=== PATIENT | male | born 1965 | race Caucasian/White ===

== ENCOUNTER 2018-09-16 18:11 | Inpatient (IN) | payer OTHER ==
[~2018-09-16] VITALS: Ht 177.8 cm; Wt 61.2 kg
--- NOTE | ~2018-09-16 | H ---
[facility] [place] [address] HISTORY AND PHYSICAL Name: KADEN NEGRON Room #: 359-P ADM IN ..#: [id number] Admission: 09/16/18 Attend Phys: Nellie Lobo Discharge: Date of : 69 Report #: [id number] THIS REPORT FOR: //name// CC: Fred Rosas DATE OF SERVICE: 09/16/2018 CHIEF COMPLAINT: Hypoxia. HISTORY OF PRESENT ILLNESS: The patient is a 53-year-old gentleman, quadriplegic, trach dependent, who is sent to the hospital from his assisted with hypoxia. He lives at [facility] and normally has a trach shield with 28% oxygen. However, yesterday, the staff noted he was desaturating and was requiring 100% FiO2. They felt that he appeared pale, diaphoretic, warm to touch and is sent to the Emergency Room. Upon arrival there, his sats were 97%, but did have a temperature of 101. PAST MEDICAL HISTORY: Quadriplegia, colostomy, atrial fibrillation, trach dependent and PEG tube. 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 He has contractures of the upper extremities. PAST SURGICAL HISTORY: Unknown. FAMILY HISTORY: Unknown. SOCIAL HISTORY: Unknown. ALLERGIES: HYDROCODONE. MEDICATIONS: Iron, Paxil, MiraLax, scopolamine, Pepcid, lactulose, Senokot, midodrine, baclofen, oxycodone, Ativan, fentanyl patch and Tylenol. REVIEW OF SYSTEMS: He is unable to provide a review. PHYSICAL EXAMINATION: VITAL SIGNS: Temperature 36.9, pulse 56, respirations 16, blood pressure 93/53 and O2 sat 99% on 35% trach shield. GENERAL: He is awake. He tries to speak over the trach. HEAD AND NECK: Shows a trach in place, no bleeding. LUNGS: Clear anteriorly. HEART: Regular. No murmur. ABDOMEN: Soft. Normoactive bowel sounds. PEG tube in place. Left-sided colostomy. EXTREMITIES: Nonpitting edema of the lower legs. He has flexion contractures at the shoulders, elbows and wrists, bilateral. NEUROLOGIC: Appears immobile from about the neck or upper chest down. [address] [address] HISTORY AND PHYSICAL Name: KADEN NEGRON Room #: 359-P ADM IN ..#: [id number] Admission: 09/16/18 Attend Phys: Nellie Lobo Discharge: Date of : 69 Report #: [id number] LABORATORY AND X-RAY DATA: Reviewed. Pertinent findings on x-ray with bilateral opacifications, consideration of pneumonia or atelectasis. ASSESSMENT: 1. Healthcare-associated pneumonia. 2. Febrile illness. 3. Multiple stage 4 wounds. 4. Chronic quadriplegia. 5. Tracheostomy dependence. 6. Hypoxia due to healthcare-associated pneumonia. 7. Microcytic anemia. 8. Hyponatremia. 9. Severe protein-calorie malnutrition, albumin 2. PLAN: He will be treated initially for pneumonia; however, consideration should be given of infected wounds causing his elevated white count and fever. Due to his spinal cord injury, he may be hypoventilating with contributing to atelectasis on x-ray and relative hypoxia. I will ask the Pulmonary Service to see him and ID along with wound care. Overall, prognosis is poor. <ELECTRONICALLY SIGNED> By: Sanchez Sorto MD 09/17/18 1217 1020 1204 Sanchez Sorto MD /nt
--- NOTE | ~2018-09-16 | O ---
[facility] [place] [address] OPERATIVE REPORT Name: KADEN NEGRON Room #: 245-P [facility] IN M.R.#: [id number] Admission: 09/16/18 Attend Phys: Nellie Lobo Discharge: Date of : 69 Report #: [id number] THIS REPORT FOR: //name// CC: Dom Rosas DATE OF SERVICE: 09/20/2018 SURGEON: Pako Carrizales MD. TORCH STRAIGHTENER AND HEATER: None. PREOPERATIVE DIAGNOSES: 1. Extensive unstageable gluteal, and ischial decubitus ulcers 2. Malnutrition. 3. Paraplegia/quadriplegia. 4. Atrial fibrillation. POSTOPERATIVE DIAGNOSES: 1. Extensive stage 4 sacral, gluteal, and ischial decubitus ulcers. 2. Malnutrition. 3. Paraplegia/quadriplegia. 4. Atrial fibrillation. PROCEDURE: 1. An ultrasonic debridement of stage 4 sacral, gluteal and ischial decubitus ulcers including skin, subcutaneous tissue, muscle, and bone with starting measurements (in cm, width x height) of 7.5 x 7 cm sacrum, 8 x 7 cm left ischial, 15 x 10 cm right ischial; ending measurements of 15 x 11 cm sacrum, 10 x 8 cm left ischial, and 20 x 15 cm right ischial with a total area of 545 cm2. 2. Application of human connective tissue matrix (Interfyl). ANESTHESIA: General endotracheal anesthesia and local anesthetic. ESTIMATED BLOOD LOSS: 250 mL. SPECIMEN: Sacral skin, subcutaneous tissue, muscle, and bone, left ischial bone, right ischial bone. COMPLICATIONS: None appreciated. INDICATIONS FOR PROCEDURE: This is a 53-year-old male patient with quadriplegia who was transferred to [facility] for hypoxia with 28% oxygenation. He has extensive unstageable sacral, gluteal and ischial decubitus ulcers and presents now for excisional and ultrasonic debridement. [facility] [address] [place] [address] OPERATIVE REPORT Name: KADEN NEGRON Faraz Room #: 245-P [facility] IN [facility].#: [id number] Admission: 09/16/18 Attend Phys: Nellie Lobo Discharge: Date of : 69 Report #: [id number] DESCRIPTION OF PROCEDURE IN DETAIL: After the risks, benefits and expectations of the operation were discussed in detail with the patient and his durable power of respiratory services manager, informed consent was obtained. The patient was identified in the preoperative holding area. He has been receiving scheduled IV antibiotics. The patient was then taken to the operating room and he was placed in the supine position. SCDs were placed on the patient's bilateral lower extremities and pneumatic compression was initiated. The patient was then given general anesthesia through his indwelling tracheostomy. He was placed in the prone position on the operating room table. His sacral and gluteal areas were prepped and draped in the standard sterile fashion. A time-out was performed to identify the correct patient and procedure. Local anesthetic was infiltrated into the skin and subcutaneous tissue in the areas of incision that were determined by digital palpation. A sharp #10 blade scalpel was then used to make the incision around each of the wounds. Electrocautery was then used to dissect through the subcutaneous tissue down to healthy bleeding tissue, which included the entire surface area of the wound. Bleeding points were made hemostatic with electrocautery. Cultures were taken from the more superficial tissue of the sacrum. The sacral bone was also quite prominent and soft. This was felt to represent osteomyelitis/a stage 4 wound. A rongeur was used to remove the outer table of bone and underlying marrow. Bleeding points were made hemostatic with electrocautery. Cultures were taken to be sent for aerobes, anaerobes and fungus from the marrow. Bleeding points were made hemostatic with electrocautery. A rasp was used to file down the bone and eliminate any jagged edges. The wound was then made hemostatic with electrocautery. The Misonix ultrasonic debridement device was then used to further mechanically debride the wound with cavitation of both nonviable cells and bacteria. Bleeding points were again made hemostatic with electrocautery. The left ischial wound was debrided in a similar fashion. Local anesthetic had been infiltrated into the skin and subcutaneous tissue. Sharp #10 blade scalpel was used to make the incision. Electrocautery was used to dissect through the subcutaneous tissue down to healthy bleeding tissue of the wound including the entire wound surface area. A curette was then used to mechanically debride the wound and after hemostasis was achieved with electrocautery, the Misonix device was used on the entire wound surface area. Finally, the right ischial wound was both excisionally and mechanically debrided in a similar fashion. Local anesthetic had been infiltrated into the skin and subcutaneous tissue. A sharp #10 blade scalpel was used to make the incision. Electrocautery was used to dissect through the tissue down to healthy bleeding tissue and to include the tissue overlying the bone. The wound was then curetted and electrocauterized. The wound was then irrigated and the Misonix device was used to mechanically and ultrasonically debride the entire wound surface area. The bony prominence present in the left ischium and right ischium had been removed with rongeur and smoothed out with a rasp. The Misonix device [address] [address] OPERATIVE REPORT Name: KADEN NEGRON Room #: 245-P [facility] IN ..#: [id number] Admission: 09/16/18 Attend Phys: Nellie Lobo Discharge: Date of : 69 Report #: [id number] was used on each of the exposed bone areas. A total of 5 mL of Interfyl was then applied to the bony aspect each of the wounds. The human connective tissue matrix was applied in a thin layer using the backend of a pickup to evenly distribute the matrix. Each wound was then dressed with Adaptic and saline moistened 4 x 4s, then an ABD pad and tape. The patient tolerated the procedure well. He was returned to supine position, awakened, extubated, and taken to recovery room in stable condition with no apparent intraoperative complications. By: 1254 1759 Pako Carrizales MD, FACS /nt
--- NOTE | ~2018-09-16 | HC ---
[facility] [place] [address] CONSULTATION Name: KADEN NEGRON Room #: 359-P [facility] IN ..#: [id number] Admission: 09/16/18 Attend Phys: Nellie Lobo Discharge: Date of : 69 Report #: [id number] THIS REPORT FOR: //name// CC: Fred Rosas DATE OF SERVICE: 09/17/2018 TYPE OF REPORT: Pulmonary consultation. REFERRAL PHYSICIAN: Dom Rosas M.D. REASON FOR REFERRAL: Pneumonia, respiratory failure. HISTORY OF PRESENT ILLNESS: The patient is a 53-year-old white male who is being admitted with progressive hypoxia. A Pulmonary consultation was requested. The patient is quadriplegic. Detail of this is unclear. He is trach dependent. He has been residing in a custodial. The patient had a prior history of pneumonia. He was in his usual state of health until recently and was found to be hypoxic. Chest x-ray performed showing infiltrates. He was febrile. He was admitted to the hospital. The patient opens his eyes but does not verbalize. He has a trach in place. PAST MEDICAL HISTORY: As mentioned above: Quadriplegia, details unknown; trach dependent, status post PEG tube placement; multiple pressure wounds including decubitus ulcer involving the sacrum; contractures of both his upper extremities and generalized debility. PAST SURGICAL HISTORY: As mentioned above. ALLERGIES: HYDROCODONE, reactions not specified. MEDICATIONS: From the facility are reviewed, in the MAR. FAMILY HISTORY: Unknown. SOCIAL HISTORY: Unknown. REVIEW OF SYSTEMS: Deferred as the patient is not able to provide adequate history. PHYSICAL EXAMINATION: [facility] [address] [place] [address] CONSULTATION Name: KADEN NEGRON Room #: 359-P ADM IN [facility].#: [id number] Admission: 09/16/18 Attend Phys: Nellie Lobo Discharge: Date of : 69 Report #: [id number] GENERAL: He has eyes open. He is awake and does not appear to be in any distress. VITAL SIGNS: Temperature maximum was 101.3 degrees Fahrenheit, pulse is 80, respiratory rate is 18, blood pressure 100/63 mmHg and saturation 100%. HEENT: Normocephalic and atraumatic. NECK: Status post tracheostomy. CHEST: Breath sounds are mildly coarse bilaterally. CARDIOVASCULAR: Normal S1 and S2. There are no murmurs or gallop. There are no JVDs and no carotid bruit. Pulses are 2+/4+ bilaterally. ABDOMEN: Soft and nontender. No organomegaly or masses felt plus there is a PEG tube placed in the mid upper abdomen area. GENITOURINARY: Deferred. RECTAL: Deferred. EXTREMITIES: No cyanosis, clubbing or edema. MUSCULOSKELETAL: Notable for upper extremity contractures, marked muscle atrophy diffusely throughout. RADIOLOGICAL DATA: Chest x-ray shows haziness in the left lung field. Right lung field is clear. Tracheostomy in the appropriate position. LABORATORY DATA: Influenza A and B swab is negative. UA shows no bacteria. Electrolytes: Sodium 127, potassium 4.6, chloride 92, CO2 is 31, BUN is 19 and creatinine 0.7. Liver enzymes are grossly unremarkable. WBC 18,000 and hemoglobin 7.8. There are no significant bandemia. Albumin 2.0. Arterial blood gas revealed pH 7.43, pCO2 of 40 and pO2 104 on 10 liters of O2. IMPRESSION: 1. Swdgo-yt-ohmsoph hypoxic respiratory failure in this 53-year-old white male, quadriplegic. Chest x-ray shows haziness in the left lung field. Pneumonia is felt to be the likely, likely aspiration. He lives in a custodial. 2. Pneumonia, need to cover for nosocomial infections as the patient resides in a custodial. 3. Quadriplegia, details unknown, trach dependent. He has marked muscle atrophy along with contractures involving the upper extremities. 4. Anemia, hypochromic, microcytic. 5. Severe protein-calorie malnutrition. RECOMMENDATIONS: We will defer antibiotics to infectious disease. Wean O2 for saturation 90%. If respiratory status deteriorates given his pneumonia, the patient may benefit from mechanical ventilation temporarily. DVT and GI prophylaxis recommended. A nutritional support will be addressed once [place] [address] CONSULTATION Name: KADEN NEGRON Faraz Room #: 359-P ADM IN M.R.#: [id number] Admission: 09/16/18 Attend Phys: Nellie Lobo Discharge: Date of : 69 Report #: [id number] Thank you for this consultation. <ELECTRONICALLY SIGNED> By: Hemal Walker MD 09/19/18 1955 1717 0211 Hemal Walker MD /nt
--- NOTE | ~2018-09-16 | PATH ---
[facility] [address] [place] [address] PATHOLOGY RPT PROCEDURE Name: KADEN NEGRON Room #: 354-[facility] IN [facility].#: [id number] Admission: 09/16/18 Date of : 69 Discharge: 09/24/18 Report #: [id number] Path Case #: [id number] Note [facility] Accession Number: [id number] TESTS RESULT FLAG UNITS REF RANGE LAB Clinician Provided Cytology Information No. of containers..01 Other (Miscellaneous) Source: PLEURAL DIAGNOSIS: 02 PLEURAL NEGATIVE FOR MALIGNANT CELLS. SCANT CELLULARITY. MESOTHELIAL CELLS ARE PRESENT. THIS INTERPRETATION INCLUDES EVALUATION OF A CELL BLOCK. Signed out by: 02 Brandt Ford MD, Pathologist NPI- [id number] Performed by: 01 Roni Encinas, Rd Lab Technician ([facility]) Gross description: 01 1ML, RED, CLOUDY /LCS FLAG LEGEND: L-Low Normal,H-High Normal,LL-Alert Low,HH-Alert High <-Panic Low,>-Panic High,A-Abnormal,AA-Critical Abnormal Performed at: [address] [place] [address] Doni Breaux MD, [address] [address] Neha Sewell MD, Performed at: [address], [place], [place] [id number] MD Doni Breaux MD Phone: [phone]
--- NOTE | ~2018-09-16 | PATH ---
[facility] [address] [place] [address] PATHOLOGY RPT PROCEDURE Name: ALBERT CASTILLO Room #: 354-P [facility] IN M.R.#: [id number] Admission: 09/16/18 Date of : 69 Discharge: 09/24/18 Report #: [id number] Path Case #: [id number] [facility] Accession Number: [id number] . 01 Material submitted: . PART A: SACRAL BONE PART B: SACRAL TISSUE PART C: LEFT ISCHIAL TISSUE PART D: LEFT ISCHIAL BONE PART E: RIGHT ISCHIAL BONE . 01 Clinical history: . Sacral wound . 02 Diagnosis: A. Bone and soft tissue "sacral bone": - Fragments of bone and soft tissue revealing acute and chronic osteomyelitis with bone necrosis. - The surrounding tissue reveals granulation tissue, edema, hemorrhage, and acute and chronic inflammation. . B. Skin with underlying soft tissue "sacral tissue": - Extensive ulceration with underlying acute and chronic inflammation and granulation tissue. . C. Skin with underlying soft tissue "left ischial tissue": - Ulceration with underlying acute and chronic inflammation and granulation tissue. . D. Bone and soft tissue "left ischial bone": - Acute and chronic osteomyelitis with granulation tissue. The surrounding soft tissue also reveals granulation tissue and acute and chronic inflammation. . E. Bone and soft tissue "right ischial bone": - Acute and chronic osteomyelitis with granulation tissue, remote hemorrhage with hemosiderin laden macrophages. The surrounding soft tissue reveals acute and chronic inflammation and granulation tissue. (SHA:artemio; 09/24/2018) QMS/09/24/2018 . 02 Electronically signed: . Brandt Ford MD, Pathologist NPI- [id number] . 01 Gross description: . A. The specimen is received in formalin, labeled "Albert Castillo, sacral [address] [address] PATHOLOGY RPT PROCEDURE Name: ALBERT CASTILLO Room #: 354-P [facility] IN M.R.#: [id number] Admission: 09/16/18 Date of : 69 Discharge: 09/24/18 Report #: [id number] Path Case #: [id number] bone". Received are multiple segments of light sampson bone admixed with pink-otoole fibromembranous tissue measuring 3.8 x 3.5 x 0.9 cm in aggregate dimensions. The specimen is submitted representatively in cassette A1, following decalcification. . B. The specimen is received in formalin, labeled "Albert Hill, sacral tissue". Received is a segment of pink-sampson to dusky otoole-brown, necrotic-appearing skin with attached underlying soft tissue measuring 13.8 x 4.9 x 1.5 cm in aggregate dimensions. The specimen is submitted representatively in cassette B1. . C. The specimen is received in formalin, labeled "Albert Hill, left ischial tissue". Received is a segment of pale sampson to otoole-sampson skin with attached soft tissue measuring 4.8 x 2.4 x 1.6 cm in greatest dimensions. The specimen is submitted representatively in cassette C1. . D. The specimen is received in formalin, labeled "Albert Hill, left ischial bone". Received are multiple segments of otoole-brown soft tissue admixed with bone measuring 3.0 x 2.5 x 0.6 cm in aggregate dimensions. The specimen is submitted entirely in cassette D1, following decalcification. . E. The specimen is received in formalin, labeled "Albert Hill, right ischial bone". Received are multiple segments of light sampson bone admixed with soft tissue measuring 3.0 x 2.5 x 0.7 cm in aggregate dimensions. The specimen is submitted entirely in cassette E1, following decalcification. (CAA; 09/23/2018) QAC/QAC . 02 Microscopic: . . . 02 Pathologist provided ICD-10: M46.28, L89.159, M79.9 . 02 CPT . 059225, 773055, 198832, 834738, 508777, 200308, 022585, 148946 Specimen Comment: A courtesy copy of this report has been sent to Specimen Comment: [phone], . Specimen Comment: Report sent to / GENE Specimen Comment: A duplicate report has been generated due to demographic updates. Performed at: [address], [place], [place] [id number] MD Doni Breaux MD Phone: [phone] Performed at: [address] [address] PATHOLOGY RPT PROCEDURE Name: ALBERT CASTILLO Room #: 354-P [facility] IN M.R.#: [id number] Admission: 09/16/18 Date of : 69 Discharge: 09/24/18 Report #: [id number] Path Case #: [id number] [address] [id number] MD Neha Sewell MD Phone: [phone]
--- NOTE | ~2018-09-16 | HC ---
[facility] [place] [address] CONSULTATION Name: KADEN NEGRON Room #: 359-P [facility] IN ..#: [id number] Admission: 09/16/18 Attend Phys: Nellie Lobo Discharge: Date of : 69 Report #: [id number] THIS REPORT FOR: //name// CC: Fred Rosas DATE OF SERVICE: 09/17/2018 INFECTIOUS DISEASE CONSULTATION: REASON FOR CONSULTATION: I was asked to evaluate concerning fever and bacteremia. HISTORY OF PRESENT ILLNESS: The patient was a 53-year-old quadriparetic transfers from [facility] vent unit with a chronic tracheostomy, who is on a trach collar. He presents on 09/16/2018 with fever and desaturation along with diffuse body pain. The patient has a tracheostomy with moderate amount of light colored tracheal secretions. He has a left upper extremity midline catheter in place. He has a PEG tube, colostomy and a suprapubic catheter. He has extensive wounds to his pelvis and marked wasting with contractures. Following admission, he had cultures obtained from his blood, one of which is growing gram-positive cocci. His urinalysis was unremarkable. He was placed on vancomycin and Zosyn. He has defervesced as of today. Blood pressure remains stable after fluid resuscitation. No other details noted. The patient was unable to add much by history due to his tracheostomy. PAST MEDICAL HISTORY: Quadriplegia, tracheostomy, atrial fibrillation. ALLERGIES: HYDROCODONE. MEDICATIONS: As noted on his JAN, now on vancomycin and Zosyn. FAMILY HISTORY: Noncontributory. SOCIAL HISTORY: Nonsmoker, no significant alcohol intake. REVIEW OF SYSTEMS: The patient was unable give any further details other than what is noted above. CONSTITUTIONAL: As noted. EYES: Without visual changes. MOUTH: Without lesions reported or sores. RESPIRATORY: As above. CARDIOVASCULAR: Has had no palpitations or chest discomfort. GASTROINTESTINAL: There has been no vomiting and stool output has been reasonable. GENITOURINARY: Has a suprapubic catheter. MUSCULOSKELETAL: As above. [facility] [address] [address] CONSULTATION Name: KADEN NEGRON Faraz Room #: 359-P [facility] IN M.R.#: [id number] Admission: 09/16/18 Attend Phys: Nellie Lobo Discharge: Date of : 69 Report #: [id number] SKIN: As above. NEUROLOGIC: As above. No endocrine abnormalities or depression. PHYSICAL EXAMINATION: GENERAL: The patient was alert and appeared his stated age. VITAL SIGNS: Temperature is 97 degrees, pulse 61, respiratory rate 22, blood pressure 102/48. He is on 35% trach shield. He was quadriparetic with advanced wasting and contractures. HEENT: Without conjunctival injection or scleral icterus. Mouth without lesion or mucositis. NECK: Supple with tracheostomy midline with no paratracheal secretions or erythema. No JVD. LUNGS: Coarse breath sounds bilaterally. Basilar rhonchi. HEART: Regular, without murmur. ABDOMEN: Soft with PEG tube and colostomy unremarkable. He had a suprapubic catheter in place. EXTREMITIES: With spastic quadriplegia and contractures. SKIN: With large decubiti to the pelvis posteriorly with exposed bone to his sacrum. Wound is tunneled. PSYCHIATRIC: Mood appeared normal. LABORATORY STUDIES: Hemoglobin 7.8, WBC 18, platelet count 375,000, 86% segs, 7% bands. Creatinine 0.7, alkaline phosphatase 131. Sodium 127, potassium 4.6, bicarbonate 31. Lactate 0.9. Urinalysis was unremarkable. Chest x-ray, bibasilar atelectasis. Blood cultures 1 of 2 showing gram-positive cocci. IMPRESSION: A 53-year-old quadriparetic, respiratory failure, chronic decubiti, neurogenic bowel and bladder, atrial fibrillation with advanced pelvic decubiti, now with fever, Gram-positive bacteremia indeterminate yet of source whether it is central venous access, pulmonary or pelvis. With 1/2 cultures positive, we will plan to continue his IV antibiotic therapy pending identification of the organism. We will maintain his left upper extremity midline catheter and repeat laboratory studies in the a.m. He will continue respiratory therapy and full support to relieve mucus plugging in his atelectasis. I have discussed with respiratory therapy. We will continue nutritional support. Offloading his pelvis as much as possible. Have wound care followup. Continue wound care treatments along with antibiotic therapy. <ELECTRONICALLY SIGNED> By: Frantz Rosas MD 09/19/18 1000 2035 0347 Frantz Rosas MD /nt
--- NOTE | ~2018-09-16 | EKG ---
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: Estuardo GERARDO : 1965 Requested By: Sanchez Sorto Order Number: [id number] MD: Bayron Schaefer Measurements Intervals [place] Rate: 72 P: 61 OK: 116 QRS: 59 QRSD: 102 T: 141 QT: 397 QTc: 435 Interpretive Statements Sinus rhythm Borderline short OK interval Probable LVH with secondary repol abnrm No previous ECG available for comparison Electronically Signed On 09-18-2018 8:46:39 CDT by Bayron Schaefer [email or web address] <ELECTRONICALLY SIGNED> By: Bayron Schaefer MD, [facility] 09/18/18 0846 1032 31 Bayron Schaefer MD, FACC /EPI
--- NOTE | ~2018-09-16 | 2DMMODE ---
[facility] [address] [place] [address] 2 D/M-MODE ECHOCARDIOGRAM Name: KADEN NEGRON Room #: 354-P [facility] IN ..#: [id number] Admission: 09/16/18 Attend Phys: Fred Townsend Discharge: Date of : 69 Date of Service: 09/23/18 1431 Report #: [id number] THIS REPORT FOR: //name// APPROVED REPORT Study performed: 09/23/2018 13:14:13 EXAM: Comprehensive 2D, Doppler, and color-flow Echocardiogram Patient Location: Bedside Room #: 354 Status: routine BSA: 1.77 HR: 57 bpm BP: 131/80 mmHg Rhythm: Sinus arrhythmia Other Information Study Quality: Adequate 2D Dimensions RVDd: 41.45 mm IVSd: 12.00 (7-11mm) LVOT Diam: 24.11 (18-24mm) LVDd: 53.00 mm PWd: 13.00 (7-11mm) Ascending Ao: 37.00 (22-36mm) LVDs: 35.00 (25-40mm) Aortic Root: 35.51 mm Volumes Left Atrial Volume (Systole) Single Plane 4CH: 66.60 mL Single Plane 2CH: 48.47 mL LA ESV Index: 40.00 mL/m2 Aortic Valve AoV Peak Aristeo.: 1.65 m/s AO Peak Gr.: 10.84 mmHg LVOT Max P.61 mmHg LVOT Max V: 1.18 m/s FLORENCIO Vmax: 3.28 cm2 Mitral Valve E/A Ratio: 2.7 MV Decel. Time: 179.93 ms MV E Max Aristeo.: 0.77 m/s MV A Aristeo.: 0.29 m/s MV PHT: 52.18 ms IVRT: 110.73 ms [facility] [email or web address] [address] 2 D/M-MODE ECHOCARDIOGRAM Name: MIGDALIAKADEN W Room #: 354-P [facility] IN ..#: [id number] Admission: 09/16/18 Attend Phys: Fred Townsend Discharge: Date of : 69 Date of Service: 09/23/18 1431 Report #: [id number] Pulmonary Valve PV Peak Aristeo.: 1.14 m/s PV Peak Gr.: 5.20 mmHg Pulmonary Vein P Vein S: 0.44 m/s P Vein A: 0.22 m/s P Vein D: 0.66 m/s P Vein A Dur.: 138.4 msec P Vein S/D Ratio: 0.67 Tricuspid Valve TR Peak Aristeo.: 2.41 m/s RAP Estimate: 5.00 mmHg TR Peak Gr.: 23.15 mmHg PA Pressure: 28.00 mmHg Left Ventricle The left ventricle is normal size. There is normal LV segmental wall motion. Mild concentric left ventricular hypertrophy. Left ventricular systolic function is normal. LVEF is 55-60%. Right Ventricle The right ventricle is normal size. The right ventricular systolic function is normal. Atria The left atrium size is normal. The right atrium size is normal. Aortic Valve The aortic valve is normal in structure. No aortic regurgitation is present. There is no aortic valvular stenosis. Mitral Valve The mitral valve is normal in structure. Trace mitral regurgitation. No evidence of mitral valve stenosis. Tricuspid Valve The tricuspid valve is normal in structure. Trace to mild tricuspid regurgitation. Estimated PAP is 30mmHg. Pulmonic Valve The pulmonary valve is normal in structure. Trace pulmonic regurgitation. Great Vessels The aortic root is normal in size. IVC is normal in size and collapses >50% with inspiration. [facility] [address] [place] [address] 2 D/M-MODE ECHOCARDIOGRAM Name: KADEN NEGRON Room #: 354-P [facility] IN [facility]#: [id number] Admission: 09/16/18 Attend Phys: Fred Townsend Discharge: Date of : 69 Date of Service: 09/23/18 1431 Report #: [id number] <Conclusion> The left ventricle is normal size. Mild concentric left ventricular hypertrophy. Left ventricular systolic function is normal. The right ventricle is normal size. The left atrium size is normal. The aortic valve is normal in structure. Trace mitral regurgitation. Trace to mild tricuspid regurgitation. Estimated PAP is 30mmHg. <ELECTRONICALLY SIGNED> By: Darius Wallace MD 09/23/18 143 30 30 Darius Wallace MD /INF
--- NOTE | ~2018-09-16 | HC ---
[facility] [place] [address] CONSULTATION Name: KADEN NEGRON Room #: 245-P [facility] IN ..#: [id number] Admission: 09/16/18 Attend Phys: Nellie Lobo Discharge: Date of : 69 Report #: [id number] THIS REPORT FOR: //name// CC: Fred Rosas DATE OF SERVICE: 09/17/2018 REASON FOR CONSULTATION: Multiple pressure sores of sacrum, bilateral ischial areas and back in a quadriplegic patient with tracheostomy. HISTORY OF PRESENT ILLNESS: The patient is a very unfortunate 53-year-old gentleman with chronic quadriplegia who is a patient in the longterm facility at [facility] under the care of Dr. Bayron Ho. The patient is trach dependent, chronically quadriplegic. He was transferred from [facility] with hypoxia with 28% oxygenation. He is now more stable. Dr. Ho at [facility] was treating stage 4 wound of his sacral and bilateral ischial areas. PAST MEDICAL HISTORY: Quadriplegia, colostomy, atrial fibrillation, trach dependent, protein-calorie malnutrition with PEG tube, history of serious decubitus ulcers, history of contractures of the upper extremities. PAST SURGICAL HISTORY: Unknown. FAMILY HISTORY: Unknown. SOCIAL HISTORY: Unknown. ALLERGIES: HYDROCODONE. MEDICATIONS: Include iron, Paxil, MiraLax, scopolamine, Pepcid, lactulose, Senokot, midodrine, baclofen, oxycodone, Ativan, fentanyl patch and Tylenol. REVIEW OF SYSTEMS: Unobtainable. PHYSICAL EXAMINATION: GENERAL: Shows a chronically ill-appearing thin gentleman with quadriplegia and severe contractures and spasticity of his upper extremities. VITAL SIGNS: Stable. HEENT: Mucous membranes are moist. NECK: Shows a tracheostomy. LUNGS: Respirations are stable. ABDOMEN: Shows presence of a colostomy, PEG tube and a suprapubic tube. EXTREMITIES: Lower extremities show no wound. SKIN: Examination of the patient's back and sacral area shows a superficial stage 3 pressure ulcer of the right upper back laterally. There is a small deep [address] [address] CONSULTATION Name: KADEN NEGRON Faraz Room #: 245-P ADM IN .R.#: [id number] Admission: 09/16/18 Attend Phys: Nellie Lobo Discharge: Date of : 69 Report #: [id number] tissue injury without open wound over the right tip of the scapula. Examination of the sacrum shows a large chronic stage 4 pressure ulcer measuring approximately 5 x 6 cm with exposed sacral bone. There is some dark adherent exudate at the base of the wound. There is a very large pressure ulcer of the contiguous left ischium, buttock and trochanteric area measuring approximately 10 x 12 cm, which is also stage 4 and a smaller right ischial 6 x 7 cm stage 4 pressure ulcer also with exposed bone. All have considerable adherent exudate, which is dark. IMPRESSION: 1. Quadriplegia. 2. Respiratory insufficiency with tracheostomy. 3. Protein calorie malnutrition. 4. Stage 3 pressure ulcer of right flank. 5. Deep tissue injury, minor of right tip of scapula. 6. Stage 4 sacral pressure ulcer. 7. Right combined ischial-gluteal hip stage 4 pressure ulcer. 8. Left stage 4 ischial pressure ulcer. PLAN: We will offload with low air loss mattress. We will dress the wound with quarter strength Dakin's packing, change twice daily. Maintain nutrition with PEG feedings, respiratory care with tracheostomy. Wounds are diverted with a colostomy. Foam border on the area of the scapular tip and the right back. Foam boots. Wound Care team will care for his wounds while he is here at [facility]. <ELECTRONICALLY SIGNED> By: Sarthak Tavarez MD 09/22/18 1145 1231 2218 Sarthak Tavarez MD /nt
[2018-09-16 18:13] VITALS: BP 107/70
[2018-09-16 18:48] LABS: HEMATOCRIT 23.8 % (42.0-52.0); HEMOGLOBIN 7.8 gm/dL (14.0-18.0); MCH 25.6 pg (26.0-34.0); MCHC 32.9 g/dL (28.0-37.0); MCV 77.8 fL (80.0-100.0); PLATELET COUNT 325 thou/uL (150-400); RBC 3.06 mil/uL (4.50-6.00); RDW 15.6 % (10.5-14.5)
[2018-09-16 18:49] LABS: URINE BILIRUBIN NEGATIVE (Negative); URINE BLOOD NEGATIVE (Negative); URINE CLARITY CLEAR; URINE COLOR YELLOW; URINE GLUCOSE-RANDOM* NEGATIVE (Negative); URINE KETONES NEGATIVE (Negative); URINE NITRITE-REFLEX NEGATIVE (Negative); URINE PROTEIN (DIPSTICK) 1+ (Negative); URINE SPECIFIC GRAVITY <= 1.005 (1.005-1.035); URINE UROBILINOGEN 0.2 E.U./dl (0.2-1.0)
[2018-09-16 18:51] LABS: URINE LEUKOCYTES-REFLEX 3+ (Negative)
[2018-09-16 18:57] LABS: CALCIUM 9.1 mg/dL (8.5-10.1); CREATININE 0.7 mg/dL (0.7-1.3); POTASSIUM 4.6 mmol/L (3.5-5.1)
[2018-09-16 18:58] LABS: AMORPHOUS PHOSPHATES Many /LPF (None Seen); BACTERIA-REFLEX None Seen /HPF (None Seen); CASTS None Seen /LPF (None Seen); SQUAMOUS 0-3 Few /LPF (0-3); TRIPLE PHOSPHATE CRYSTALS >10 Many /LPF (None Seen); URINE RBC None Seen /HPF (0-2); URINE WBC-REFLEX 0-5 Rare /HPF (0-5)
[2018-09-16 19:03] LABS: DIRECT BILIRUBIN 0.3 mg/dL (<0.1-0.3); TOTAL BILIRUBIN 0.8 mg/dL (<0.1-1.0); TOTAL PROTEIN 7.7 g/dL (6.4-8.2)
[2018-09-16 19:28] LABS: ABSOLUTE NEUTROPHILS 16.7 thou/uL (1.4-8.2)
[2018-09-16 19:29] LABS: TOXIC GRANULATION 1+
[2018-09-16 19:37] LABS: BE(vivo) 2.6 mmol/L (-2 to +3); PCO2 40.8 mmHg (35.0-45.0); PO2 104.8 mmHg (80.0-100.0); pH 7.439 (7.360-7.450)
[2018-09-16] MEDS ORDERED: PAXIL10 MG PER TUBE (20:16)
[2018-09-16] MEDS ORDERED: FERROUS SU220 MG/5 M PER TUBE (20:16)
[2018-09-16] MEDS ORDERED: MIRALAX17 GM PER TUBE (20:17)
[2018-09-16] MEDS ORDERED: TRANSDERM-SCOP1 EACH TOP (20:17)
[2018-09-16] MEDS ORDERED: PEPCID20 MG PER TUBE (20:18)
[2018-09-16] MEDS ORDERED: JEVITY 1.5 CAL237 ML PER TUBE (20:20)
[2018-09-16] MEDS ORDERED: SENNA8.8 MG/5 M PER TUBE (20:20)
[2018-09-16] MEDS ORDERED: MIDODRINE HCL2.5 M1 PER TUBE (20:25)
[2018-09-16] MEDS ORDERED: BACLOFEN20 MG PO (20:27)
[2018-09-16] MEDS ORDERED: MIDODRINE HCL 55 M1 PER TUBE (20:27)
[2018-09-16] MEDS ORDERED: OXYCODONE HCL20 M1 PER TUBE (20:28)
[2018-09-16] MEDS ORDERED: LEVSIN0.125 MG PER TUBE (20:28)
[2018-09-16] MEDS ORDERED: ATIVAN1 MG PER TUBE (20:29)
[2018-09-16] MEDS ORDERED: FENTANYL PATCH75 MCG TRANSDERM (20:29)
[2018-09-16] MEDS ORDERED: ACETAMINOP160 MG/51 PER TUBE (20:30)
[2018-09-16] MEDS ORDERED: BISCOLAX10 MG RECTAL (20:31)
[2018-09-16] MEDS ORDERED: ALBUTEROL2.5 MG/31 INH (20:32)
[2018-09-16] MEDS ORDERED: IPRAT-ALBUT 0.5-3 ML INH (20:32)
[2018-09-16] MEDS ORDERED: DIOCTO50 MG/5 ML PER TUBE (20:32)
[2018-09-16] MEDS ORDERED: NITROGLYCERIN0.4 MG SUBLING (20:32)
[2018-09-16 21:32] VITALS: BP 99/57
[2018-09-16 22:09] VITALS: BP 99/57
[2018-09-16 22:30] VITALS: BP 85/48
[2018-09-17 05:25] VITALS: BP 105/63
[2018-09-17 07:31] VITALS: BP 93/53
[2018-09-17 11:13] VITALS: BP 93/53
[2018-09-17 15:15] VITALS: BP 95/55
[2018-09-17 19:21] VITALS: BP 102/48
[2018-09-18 03:58] VITALS: BP 92/57
[2018-09-18 04:50] LABS: CALCIUM 8.4 mg/dL (8.5-10.1); CREATININE 0.5 mg/dL (0.7-1.3); POTASSIUM 4.3 mmol/L (3.5-5.1)
[2018-09-18 05:06] LABS: HEMATOCRIT 23.2 % (42.0-52.0); HEMOGLOBIN 7.6 gm/dL (14.0-18.0); MCH 26.3 pg (26.0-34.0); MCHC 32.7 g/dL (28.0-37.0); MCV 80.4 fL (80.0-100.0); RBC 2.89 mil/uL (4.50-6.00); RDW 15.9 % (10.5-14.5); WBC 7.6 thou/uL (4.0-11.0)
[2018-09-18 07:34] VITALS: BP 121/66
[2018-09-18 07:46] VITALS: BP 111/56
[2018-09-18 07:50] LABS: INR 1.3; PROTIME 13.1 Seconds (9.3-11.4)
[2018-09-18 14:13] VITALS: BP 99/51
[2018-09-18 18:28] VITALS: BP 113/67
[2018-09-18 19:50] VITALS: BP 119/59
[2018-09-19 04:20] VITALS: BP 110/63
[2018-09-19 07:52] VITALS: BP 110/43
[2018-09-19 15:57] VITALS: BP 149/78
[2018-09-19 20:42] VITALS: BP 147/71
[2018-09-20] VITALS (23 sets, daily range): BP systolic 82–127; BP diastolic 49–76
[2018-09-20 10:59] LABS: APTT 31.3 Seconds (24.5-32.8); INR 1.2; PROTIME 12.2 Seconds (9.3-11.4)
[2018-09-20 13:41] LABS: HEMOGLOBIN 6.7 gm/dL (14.0-18.0)
[2018-09-20 13:42] LABS: HEMATOCRIT 20.4 % (42.0-52.0)
[2018-09-20 14:27] LABS: CREATININE 0.5 mg/dL (0.7-1.3); POTASSIUM 3.6 mmol/L (3.5-5.1)
[2018-09-20 18:53] LABS: HEMATOCRIT 23.3 % (42.0-52.0); HEMOGLOBIN 7.7 gm/dL (14.0-18.0)
[2018-09-21] VITALS (90 sets, daily range): BP systolic 65–167; BP diastolic 37–96
[2018-09-21 04:18] LABS: MCH 26.3 pg (26.0-34.0); RDW 16.4 % (10.5-14.5); WBC 12.3 thou/uL (4.0-11.0)
[2018-09-21 04:19] LABS: MCHC 32.7 g/dL (28.0-37.0); MCV 80.5 fL (80.0-100.0); RBC 2.43 mil/uL (4.50-6.00)
[2018-09-21 04:24] LABS: CREATININE 0.6 mg/dL (0.7-1.3); POTASSIUM 3.5 mmol/L (3.5-5.1)
[2018-09-21 04:43] LABS: HEMATOCRIT 19.5 % (42.0-52.0); HEMOGLOBIN 6.4 gm/dL (14.0-18.0)
[2018-09-21 20:10] LABS: HEMATOCRIT 22.3 % (42.0-52.0); HEMOGLOBIN 7.8 gm/dL (14.0-18.0)
[2018-09-22 00:07] VITALS: BP 148/78
[2018-09-22 08:30] LABS: HEMATOCRIT 22.9 % (42.0-52.0); HEMOGLOBIN 7.8 gm/dL (14.0-18.0); MCH 28.7 pg (26.0-34.0); MCHC 34.3 g/dL (28.0-37.0); MCV 83.7 fL (80.0-100.0); RBC 2.73 mil/uL (4.50-6.00); WBC 8.7 thou/uL (4.0-11.0)
[2018-09-22 08:40] LABS: CALCIUM 8.6 mg/dL (8.5-10.1); CREATININE 0.7 mg/dL (0.7-1.3); POTASSIUM 3.3 mmol/L (3.5-5.1)
[2018-09-22 12:33] VITALS: BP 148/88
[2018-09-22 15:58] VITALS: BP 143/82
[2018-09-22 19:30] VITALS: BP 146/78
[2018-09-23 02:54] VITALS: BP 130/87
[2018-09-23 05:39] LABS: HEMATOCRIT 23.3 % (42.0-52.0); HEMOGLOBIN 8.1 gm/dL (14.0-18.0); MCH 29.1 pg (26.0-34.0); MCHC 34.8 g/dL (28.0-37.0); MCV 83.5 fL (80.0-100.0); RBC 2.8 mil/uL (4.50-6.00); RDW 17.7 % (10.5-14.5); WBC 7.7 thou/uL (4.0-11.0)
[2018-09-23 05:47] LABS: CALCIUM 8.3 mg/dL (8.5-10.1); CREATININE 0.6 mg/dL (0.7-1.3); POTASSIUM 3.1 mmol/L (3.5-5.1)
[2018-09-23 08:06] VITALS: BP 153/91
[2018-09-23 11:19] LABS: COLOR YELLOW; SOURCE LEFT CHEST; TOTAL VOLUME 3.5 mL
[2018-09-23 11:20] LABS: CLARITY CLOUDY; SOURCE LEFT CHEST
[2018-09-23 12:04] VITALS: BP 131/80
[2018-09-23 12:09] LABS: BF NUCLEATED CELLS 653; BF RBC 15870
[2018-09-23 13:31] LABS: BF MACROPHAGE 29; BF NEUTROPHILS 8
[2018-09-23 15:00] VITALS: BP 102/65
[2018-09-23 20:03] VITALS: BP 115/74
[2018-09-24 01:09] LABS: BODY FLUID ALBUMIN 1.1 g/dL (()); BODY FLUID AMYLASE 11 U/L (()); BODY FLUID GLUCOSE 87 mg/dL (()); BODY FLUID LDH 273 IU/L (()); BODY FLUID PROTEIN 2.9 g/dL (())
[2018-09-24 05:51] VITALS: BP 108/65
[2018-09-24 06:21] LABS: HEMOGLOBIN 7.7 gm/dL (14.0-18.0); MCH 28.5 pg (26.0-34.0); MCHC 33.5 g/dL (28.0-37.0); RBC 2.71 mil/uL (4.50-6.00); RDW 17.3 % (10.5-14.5); WBC 5.9 thou/uL (4.0-11.0)
[2018-09-24 06:35] LABS: CALCIUM 8.7 mg/dL (8.5-10.1); CREATININE 0.6 mg/dL (0.7-1.3); POTASSIUM 4.1 mmol/L (3.5-5.1)
[2018-09-24 07:37] VITALS: BP 100/50
[2018-09-24] MEDS ORDERED: FENTANYL PATCH75 MCG TRANSDERM (09:28)
[2018-09-24] MEDS ORDERED: OXYCODONE HCL10 MG PO (09:29)
[2018-09-24] MEDS ORDERED: ATIVAN1 MG PER TUBE (09:29)
[2018-09-24] MEDS ORDERED: VANCO 750750 MG/150 IV (09:31)
[2018-09-24] MEDS ORDERED: ZOSYN 3.3753.375 GM IV (09:31)
[2018-09-24 14:06] VITALS: BP 100/50
== END 2018-09-24 14:11 | DRG 853 ==
LOC: ER 18:11 → 3W 20:23 → EROBS 20:23 → 3W 22:10 → ICU 09-20 17:39 → 3W 09-22 12:29
PROVIDERS: Emergency Medicine; Internal Medicine Geriatric Medicine; Internal Medicine Pulmonary Disease; Radiology Diagnostic Radiology; Student in an Organized Health Care Education/Training Program
PROC: 0QB10ZZ Excision of Sacrum, Open Approach (ICD-10-PCS; principal; 2018-09-20)
PROC: 0QB70ZZ Excision of Left Upper Femur, Open Approach (ICD-10-PCS; principal; 2018-09-20)
PROC: 0QB60ZZ Excision of Right Upper Femur, Open Approach (ICD-10-PCS; principal; 2018-09-20)
PROC: 30233N1 Transfusion of Nonautologous Red Blood Cells into Peripheral Vein, Percutaneous Approach (ICD-10-PCS; principal; 2018-09-20)
PROC: 0W9B3ZZ Drainage of Left Pleural Cavity, Percutaneous Approach (ICD-10-PCS; 2018-09-23)
DX: A41.02 Sepsis due to Methicillin resistant Staphylococcus aureus (principal); L89.113 Pressure ulcer of right upper back, stage 3; J18.9 Pneumonia, unspecified organism; L89.224 Pressure ulcer of left hip, stage 4; L89.214 Pressure ulcer of right hip, stage 4; L89.313 Pressure ulcer of right buttock, stage 3; L89.154 Pressure ulcer of sacral region, stage 4; G82.50 Quadriplegia, unspecified; J96.21 Acute and chronic respiratory failure with hypoxia; E43 Unspecified severe protein-calorie malnutrition; N39.0 Urinary tract infection, site not specified; Z68.1 Body mass index [BMI] 19.9 or less, adult; K59.2 Neurogenic bowel, not elsewhere classified; E87.1 Hypo-osmolality and hyponatremia; J90 Pleural effusion, not elsewhere classified; Z66 Do not resuscitate; Y95 Nosocomial condition; N31.9 Neuromuscular dysfunction of bladder, unspecified; I48.91 Unspecified atrial fibrillation; D50.9 Iron deficiency anemia, unspecified; Z93.0 Tracheostomy status; Z93.1 Gastrostomy status; Z79.899 Other long term (current) drug therapy; Z88.8 Allergy status to other drugs, medicaments and biological substances; Z23 Encounter for immunization
CPT/HCPCS: 10078; 10879; 50010; 50101; 50386; 50403; 57119; 57120; 62110; 62900; 70005

== ENCOUNTER 2018-12-19 17:55 | Inpatient (IN) | payer OTHER ==
[~2018-12-19] VITALS: Ht 177.8 cm; Wt 61.5 kg
[~2018-12-19 17:55] MED LIST: ACETAMINOP160 MG/51 PER TUBE; ALBUTEROL2.5 MG/31 INH; ATIVAN1 MG PER TUBE; BACLOFEN20 MG PO; BISCOLAX10 MG RECTAL; DIOCTO50 MG/5 ML PER TUBE; FENTANYL PATCH75 MCG TRANSDERM; FERROUS SU220 MG/5 M PER TUBE; IPRAT-ALBUT 0.5-3 ML INH; JEVITY 1.5 CAL237 ML PER TUBE; LEVSIN0.125 MG PER TUBE; MIDODRINE HCL 55 M1 PER TUBE; MIDODRINE HCL2.5 M1 PER TUBE; MIRALAX17 GM PER TUBE; NITROGLYCERIN0.4 MG SUBLING; OXYCODONE HCL10 MG PO; OXYCODONE HCL20 M1 PER TUBE; PAXIL10 MG PER TUBE; PEPCID20 MG PER TUBE; SENNA8.8 MG/5 M PER TUBE; TRANSDERM-SCOP1 EACH TOP; VANCO 750750 MG/150 IV; ZOSYN 3.3753.375 GM IV
[2018-12-19 17:56] VITALS: BP 91/49
[2018-12-19 19:12] LABS: HCO3 26.5 mmol/L (22.0-26.0); PCO2 VENOUS 47.3 mmHg (41.0-51.0); PO2 VENOUS 42.4 mmHg (35.0-45.0)
[2018-12-19 19:15] LABS: ANION GAP 8 mmol/L (7-16); BUN 23 mg/dL (7-18); CALCIUM 9.2 mg/dL (8.5-10.1); CHLORIDE 99 mmol/L (98-107); CO2 27 mmol/L (21-32); CREATININE 0.6 mg/dL (0.7-1.3); GLUCOSE 106 mg/dL (74-106); POTASSIUM 5.3 mmol/L (3.5-5.1); SODIUM 134 mmol/L (136-145)
[2018-12-19 19:24] LABS: MAGNESIUM 1.7 mg/dL (1.8-2.4); SGOT 35 U/L (15-37); SGPT 28 U/L (30-65); TOTAL BILIRUBIN 0.5 mg/dL (<0.1-1.0); TOTAL PROTEIN 7.3 g/dL (6.4-8.2); TROPONIN-I <0.06 ng/mL (<0.06)
[2018-12-19 19:27] LABS: ABSOLUTE NEUTROPHILS 12.2 thou/uL (1.4-8.2); BASOPHILS 0.4 % (0.0-2.0); EOSINOPHILS 0.1 % (0.0-3.0); HEMATOCRIT 21.9 % (42.0-52.0); LYMPHOCYTES 5.7 % (24.0-44.0); MCH 23.9 pg (26.0-34.0); MCHC 31.8 g/dL (28.0-37.0); MCV 75.4 fL (80.0-100.0); MONOCYTES 6.8 % (1.0-8.0); PLATELET COUNT 435 thou/uL (150-400); RBC 2.91 mil/uL (4.50-6.00); RDW 17.8 % (10.5-14.5)
[2018-12-19 19:31] LABS: URINE BILIRUBIN NEGATIVE (Negative); URINE BLOOD TRACE (Negative); URINE CLARITY CLEAR; URINE COLOR YELLOW; URINE GLUCOSE-RANDOM* NEGATIVE (Negative); URINE KETONES NEGATIVE (Negative); URINE NITRITE-REFLEX NEGATIVE (Negative); URINE PROTEIN (DIPSTICK) 1+ (Negative); URINE SPECIFIC GRAVITY 1.015 (1.005-1.035); URINE UROBILINOGEN 0.2 E.U./dl (0.2-1.0)
[2018-12-19 19:34] LABS: URINE LEUKOCYTES-REFLEX 3+ (Negative)
[2018-12-19 19:41] LABS: BACTERIA-REFLEX >30 Many /HPF (None Seen); CASTS None Seen /LPF (None Seen); CRYSTALS None Seen /LPF (None Seen); SQUAMOUS 0-3 Few /LPF (0-3); URINE RBC 0-2 Rare /HPF (0-2); URINE WBC-REFLEX >25 Many /HPF (0-5)
[2018-12-19 19:59] LABS: APTT 20.6 Seconds (24.5-32.8); INR 1.1; PROTIME 11.2 Seconds (9.3-11.4)
[2018-12-19 20:42] VITALS: BP 102/47
[2018-12-19 22:43] VITALS: BP 91/36
[2018-12-19 23:00] VITALS: BP 120/58
[2018-12-20] MEDS ORDERED: NITROGLYCERIN0.4 MG SUBLING (00:33)
[2018-12-20] MEDS ORDERED: SENNA8.8 MG/5 M PER TUBE (00:37)
[2018-12-20] MEDS ORDERED: TYLENOL325 MG PER TUBE (00:48)
[2018-12-20] MEDS ORDERED: BISACODYL SUPP10 MG RECTAL (00:49)
[2018-12-20] MEDS ORDERED: SCOPOLAMINE1 EACH TRANSDERM (00:54)
--- NOTE | 2018-12-20 01:14 | NUR ---
PATIENT WAS A NEW ADMIT TO THIS UNIT THIS SHIFT. HE ARRIVED VIA CART FROM THE ER AND WAS TRANSFERRED TO BED WITHOUT INCIDENT. PATIENT STARTED ON TRACH TUBE DUE TO PROBLEMS BREATHING. FREQUENT SUCTIONING IS REQUIRED. PATIENT IS ALERT AND ORIENTED AND ABLE TO PARTICIPATE IN ADMISSION. MULTIPLE WOUNDS NOTED ON PATIENT WITH PICTURES TAKEN PER PROTOCOL AND WET TO DRY DRESSINGS APPLIED. NURSE TO COMPLETE ADMISSION AND INITIATE CARE PLAN.
[2018-12-20 04:30] VITALS: BP 92/48
[2018-12-20 07:49] VITALS: BP 113/63
--- NOTE | 2018-12-20 08:15 | EKG ---
[address] [place] [address] ELECTROCARDIOGRAM REPORT Name: SANDHYA NEGRONEN Faraz Room #: 352-P ADM IN M.R.#: [id number] Admission: 12/19/18 Attend Phys: Nellie Lobo Discharge: Date of : 69 Report #: [id number] THIS REPORT FOR: //name// [facility] ED Test Date: 2018-12-19 Test Time: 18:00:52 Pat Name: KADEN NEGRON Department: Room: [facility] Gender: M Neuropsychologist: RAFFAELE : 1965 Requested By: Frantz Varma Order Number: [id number] MD: Kade Aparicio Measurements Intervals [place] Rate: 82 P: 59 AK: 114 QRS: 70 QRSD: 98 T: 63 QT: 475 QTc: 555 Interpretive Statements Sinus rhythm Borderline short AK interval LVH with secondary repolarization abnormality Compared to ECG 09/17/2018 10:32:42 Electronically Signed On 12-20-2018 8:15:09 [employer]OX [employer] by Kade Aparicio [email or web address] <ELECTRONICALLY SIGNED> By: Kade Aparicio MD 12/20/18 0815 1800 Marilee Aparicio MD /GERRI
--- NOTE | 2018-12-20 09:55 | NUR ---
Nutrition: REC change tube feeding formula to Pivot 1.5 to provide additional protein and arginine for wound healing needs. Pt normally eats a regular diet plus Ensure clear. If to remain NPO, rec Pivot 1.5 x 24 hrs at 65 mL/hr with 200 mL H20 q 4 hr flush.
--- NOTE | 2018-12-20 10:49 | NUR ---
WOUND CARE COMPLETED BY WOUND CARE TEAM.
--- NOTE | 2018-12-20 11:45 | NUR ---
WOUND CONSULT: PT. WAS SEEN TODAY BY DR. HICKS AND MYSELF. PT. IS WELL KNOWN TO THE WOUND CARE TEAM. PT. HAS STAGE 4 PRESSURE ULCERS TO HIS LEFT ISCHIAL TUBOERISTY, RIGHT ISCHIAL TUBEROSITY AND SACRUM. PT. ALSO HAS UNSTAGABLE PRESSURE ULCER TO HIS LEFT LATERAL MAYRA, LEFT MEDIAL ANKLE, RIGHT LATERAL ANKLE, RIGHT MEDIAL ANKLE AND RIGHT HEEL. RECOMMENDATIONS: WOUND CARE TO RIGHT HEEL: GENTLY CLEANSE WITH WOUND CLEANSER OR NORMAL SALINE, APPLY XEROFORM TO WOUND BED, COVER WITH OPTIFOAM BORDER, COMPLETE CARES DAILY AND PRN SOILAGE. WOUND CARE TO RIGHT LATERAL ANKLE, RIGHT MEDIAL ANKLE, LEFT LATERAL ANKLE AND LEFT MEDIAL ANKLE: GENTLY CLEANSE WITH WOUND CLEANSER OR NORMAL SALINE, PAINT WITH BETADINE, LEAVE OPEN TO AIR, COMPLETE CARES DAILY. WOUND CARE TO LEFT ISCHIAL TUBEROISTY, RIGHT ISCHIAL TUBOERISTY AND SACARL: GENTLY CLEANSE AREA WITH WOUND CLEANSER OR NORMAL SALINE, PACK WITH DAKIN MOIST KERLIX, COVER WITH ABD, SECURE WITH KERLIX TAPE, COMPLETE CARES DAILY. TURN Q2 HOURS KEEP PT. OFF WOUNDS MUCH POSSIBLE KEEP ON BONITA MATRESS. PT. AND STAFF NURSE WERE INSTRUCTED ON PLAN OF CARE.
--- NOTE | 2018-12-20 12:00 | NUR ---
ASSESSMENT: CM REVIEWED CHART AND MET WITH PATIENT AT THE BEDSIDE. PT IS QUADRIPLEGIC/TRACH DEPENDENT AND LIVES AT [facility]. PT HAS MULTIPLE WOUNDS. PT WAS ADMITTED DUE TO LOW OXYGEN SATURATION. PATIENT IS ABLE TO MOUTH WORDS TO COMMUNICATE. CM ATTEMPTED TO REACH PATIENTS DPOA/JAYCOB BUT LEFT VM. PLANS ARE FOR PATIENT TO RETURN BACK TO [facility] ONCE MEDICALLY STABLE. CM NOTIFIED PRE-CERT DEPT THAT PATIENTS LIVES ON THE SNF UNIT AT [facility] AND HIS INSURANCE WILL NEED TO BE UPDATED TO [place] MEDICAID/[place]. CM LEFT VM WITH [id number] WITH INSURANCE INFORMATION. CM ALSO SPOKE WITH LIASON FROM [facility]. PLANS FOR PATIENT TO RETURN TO [facility] ONCE MEDICALLY STABLE.
[2018-12-20 12:27] VITALS: BP 121/75
--- NOTE | 2018-12-20 13:23 | NUR ---
PT REQUESTING THAT FEEDING TUBE BE TURNED OFF FOR TODAY. CHEKED FOR RESIDUAL AND WAS 0. WILL CONTINUE TO ASSESS.
--- NOTE | 2018-12-20 16:15 | H ---
[facility] [place] [address] HISTORY AND PHYSICAL Name: KADEN NEGRON Room #: 352-P ADM IN M.R.#: [id number] Admission: 12/19/18 Attend Phys: Nellie Lobo Discharge: Date of : 69 Report #: [id number] THIS REPORT FOR: //name// CC: Fred Rosas DATE OF SERVICE: 12/20/2018 CHIEF COMPLAINT: Shortness of breath. HISTORY OF PRESENT ILLNESS: The patient is a 53-year-old gentleman from [facility] for evaluation of shortness of breath. He has a history of quadriplegia due to remote spinal cord injury at the neck and has been dependent on a tracheostomy for a number of years. He has been living at the ventilator unit at [facility]. Yesterday's O2 sats were in the 60s and he was taken to the Emergency Room. With treatment and deep suctioning in ER, after speaking with the ER physician, his sats improved and he stabilized. PAST MEDICAL HISTORY: Chronic quadriplegia, chronic tracheostomy, paroxysmal AFib, history of GA in 2017, colostomy, history of multiple pressure wounds, suprapubic catheter, history of UTI, GERD, dysphagia and contractures of all extremities due to spinal cord injury. PAST SURGICAL HISTORY: Unknown. FAMILY HISTORY: Noncontributory. SOCIAL HISTORY: No known chronic alcohol or tobacco use. ALLERGIES: HYDROCODONE. MEDICATIONS: Fentanyl patch, oxycodone, Ativan, Senokot, scopolamine, Paxil, MiraLax, Pepcid, midodrine, baclofen and DuoNebs. REVIEW OF SYSTEMS: He is alert. He nods no to any shortness of breath. PHYSICAL EXAMINATION: VITAL SIGNS: Temperature 37.6, pulse 78, respirations 24, blood pressure 113/63 and O2 sat 93% on T-tube. GENERAL: He is awake, looks chronically ill. Responds appropriately. HEAD AND NECK: Has tracheostomy in place. LUNGS: Coarse anteriorly. HEART: Regular. ABDOMEN: Soft. Normoactive bowel sounds. PEG, colostomy, suprapubic catheter in place. EXTREMITIES: Rigid contractures throughout. [facility] [address] [place] [address] HISTORY AND PHYSICAL Name: KADEN NEGRON Room #: 352-P [facility] IN [facility].#: [id number] Admission: 12/19/18 Attend Phys: Nellie Lobo Discharge: Date of : 69 Report #: [id number] LABORATORY AND X-RAY DATA: Reviewed. ASSESSMENT: 1. Healthcare-associated pneumonia. 2. Chronic quadriplegia. 3. Chronic hypoxic respiratory failure. 4. Tracheostomy dependence. 5. Severe protein-calorie malnutrition. Albumin 2. 6. Electrolyte disturbance. 7. Microcytic anemia. 8. Pyuria. 9. Cystitis. PLAN: He will be covered with broad-spectrum antibiotics and his usual medicines from home. His respiratory status is stable on his current T-tube level and there are no plans to wean the tracheostomy. There is a chronic care situation, so we will continue antibiotic care and his other treatments. He has Do Not Resuscitate orders from the care facility, which we will continue here. <ELECTRONICALLY SIGNED> By: Sanchez Sorto MD 12/20/18 1615 1117 1159 Sanchez Sorto MD /nt
[2018-12-20 17:12] VITALS: BP 110/7
--- NOTE | 2018-12-20 18:04 | NUR ---
CONTINUE Q2 HOUR TURNS, WOUNDS CLEANED AND DRESSED BY WOUND CARE TEAM. PT REQUESTING PO FOOD AND FLUID. PT ALSO WANTS TO RESTART BACLOPHEN. WILL PASS ON FOR DAY SHIFT TO ADDRESS WITH ATTENDING PYSICIAN IN THE AM.
[2018-12-20 19:31] VITALS: BP 117/74
[2018-12-20 23:06] VITALS: BP 88/59
[2018-12-21 04:11] VITALS: BP 102/71
--- NOTE | 2018-12-21 04:45 | NUR ---
Patient making slow progress towards outcome goals, requires frequent suctioning, thick yellow. Able to us special call light. Oxycodone and Lorazepam given with some pain and anxiety relief. Tolerated tube feeding and thin water. states he is allowed to eat regular diet and liquids at facility. colostomy intact. turned to sides. oxygen 60% per TT sats low to mid 90's.
[2018-12-21 08:13] LABS: WBC 13.5 thou/uL (4.0-11.0)
[2018-12-21 08:14] LABS: MCH 23.9 pg (26.0-34.0); MCHC 32.1 g/dL (28.0-37.0); MCV 74.4 fL (80.0-100.0); RBC 2.64 mil/uL (4.50-6.00); RDW 17.8 % (10.5-14.5)
[2018-12-21 08:22] LABS: HEMATOCRIT 19.7 % (42.0-52.0); HEMOGLOBIN 6.3 gm/dL (14.0-18.0)
[2018-12-21 08:25] LABS: CALCIUM 9.2 mg/dL (8.5-10.1); CREATININE 0.6 mg/dL (0.7-1.3); POTASSIUM 3.5 mmol/L (3.5-5.1)
[2018-12-21 09:37] VITALS: BP 110/61
[2018-12-21 12:00] VITALS: BP 93/55
[2018-12-21 17:55] VITALS: BP 111/69
[2018-12-21 19:30] VITALS: BP 116/68
--- NOTE | 2018-12-21 23:25 | NUR ---
2000 - pT LAYING IN BED IN NAD. 100% ON THE PULSE OX. REPOSITIONED. WILL TURN Q2H.
[2018-12-22 03:45] VITALS: BP 107/65
[2018-12-22 06:35] LABS: HEMATOCRIT 20.1 % (42.0-52.0)
[2018-12-22 06:40] LABS: HEMOGLOBIN 6.3 gm/dL (14.0-18.0)
[2018-12-22 12:28] VITALS: BP 113/59
[2018-12-22 16:57] VITALS: BP 152/69
[2018-12-22 19:30] VITALS: BP 133/66
--- NOTE | 2018-12-22 19:38 | NUR ---
PT HAD DIFFICULTY WITH DESATING WHEN TURNED FOR DRESSING CHANGE...SAT PROBE CHANGED..SUCTIONED SEVERAL TIMES PER TRACH AND ORALLY..RT CALLED FOR ASSIST..O2 NEEDS INCREASED FROM 35% TO 95% TS..DR MILLS NOTIFED..
--- NOTE | 2018-12-23 03:29 | NUR ---
calls approp when needing help. he is awake all night and watching tv. encouraged turns. complains of pain to neck and head, medication given. needs frequent suctioning, beige colored sputum noted. continues on iv antibiotics. trach shield at 45 % fio2 this moring. he is comfortable and cooperative.
[2018-12-23 05:00] VITALS: BP 134/79
[2018-12-23 08:08] VITALS: BP 134/70
--- NOTE | 2018-12-23 08:45 | HC ---
[facility] [place] [address] CONSULTATION Name: KADEN NEGRON Room #: 352-P [facility] IN ..#: [id number] Admission: 12/19/18 Attend Phys: Nellie Lobo Discharge: Date of : 69 Report #: [id number] THIS REPORT FOR: //name// CC: Fred Roass DATE OF SERVICE: 12/20/2018 PERSONAL PHYSICIAN: Sanchez Sorto MD. CHIEF COMPLAINT: Multiple decubitus ulcers. HISTORY OF PRESENT ILLNESS: The patient is a 53-year-old white male who was admitted for shortness of breath and chronic hypoxia with concern for healthcare-associated pneumonia. Due to the patient's chronic multiple decubitus ulcers, we have been asked to follow him for the ulcers at this time. The patient has a chronic tracheostomy and is very difficult to communicate with because of that. The patient, however, when asked if he has any new ulcerations, he shakes his head no. PAST MEDICAL HISTORY: Significant for chronic quadriplegia with significant contractures of all extremities secondary to spinal cord injury from multiple years ago; chronic tracheostomy, ventilator dependent; paroxysmal atrial fibrillation; status post colostomy; suprapubic catheter; history of multiple UTIs; and history of multiple decubitus ulcers. CURRENT MEDICATIONS: Multiple. I reviewed the patient's medications list. DRUG ALLERGIES: HYDROCODONE. SOCIAL HISTORY: The patient resides in a skilled nursing ventilator care facility. Does not smoke or drink alcohol. FAMILY HISTORY: Not pertinent to current medical condition. REVIEW OF SYSTEMS: Unobtainable given the fact that patient has tracheostomy and is slightly sedated and in moderate respiratory distress. PHYSICAL EXAMINATION: VITAL SIGNS: Temperature 36.6, pulse 83, respirations 22 on a ventilator, BP 110/61. GENERAL: This is an awake and alert x 2, person and place, but not time, white male who appears chronically ill with significant upper and lower extremity contractures. HEENT: Normocephalic, atraumatic. Mucous membranes are dry. Pupils are round, sclerae white. NECK: The patient has tracheostomy in place without excoriation. [facility] [address] [place] [address] CONSULTATION Name: MIGDALIAKADEN W Room #: 352-P [facility] IN .R.#: [id number] Admission: 12/19/18 Attend Phys: Nellie Lobo Discharge: Date of : 69 Report #: [id number] LUNGS: Diminished breath sounds heard throughout with occasional scattered wheeze. HEART: Regular without murmur. ABDOMEN: Soft. Colostomy is in place as is PEG tube. EXTREMITIES: Evaluation of sacrococcygeal and ischial region reveals essentially one large ulceration which extends both from one ischium to the other including the sacrococcygeal region with exposed bone centrally in the sacrococcygeal region. The wound itself actually is fairly clean and granulating. There is no odor. There is moderate amount of serosanguineous drainage. Periwound is mildly macerated. No significant tunneling or undermining. There is minimal subcutaneous fat noted in this region. Evaluation of the lower extremities reveals an unstageable pressure ulcer to his left lateral ankle, left medial ankle, right lateral ankle, right medial ankle and right heel. All of these were unstageable without signs of overt infection or cellulitis. There is no palpable bone in any of these ulcerations. NEUROLOGIC: The patient is quadriplegic. LABORATORY DATA: White count is 14.0, hemoglobin 7.0, albumin is 2.0. Chest x-ray shows cardiomegaly without significant failure. There are right side lung opacities consistent with probable pneumonia. IMPRESSION: 1. Stage 4 bilateral ischial decubitus ulcers present on admission without signs of overt infection. 2. Stage 4 sacrococcygeal decubitus ulcer present on admission without overt signs of infection. 3. Multiple unstageable decubitus ulcers involving the left lateral ankle, left medial ankle, right lateral ankle, right medial ankle and right heel. There are no overt signs of infection present on admission. 4. History of chronic quadriplegia. 5. Respiratory failure with ventilatory dependence. 6. Severe protein-calorie malnutrition with albumin 2.2. 7. Generalized debility. 8. Hospital-acquired pneumonia. PLAN: At this time, we will continue with Dakin's moist gauze to the bilateral ischial and sacrococcygeal ulcerations covered with ABDs, changed twice daily and p.r.n. soilage. We will cover the unstageable decubitus ulcers on the right heel with Xeroform and Optifoam border. This will be done daily. The right lateral ankle, right medial ankle, left lateral ankle and left medial ankle, we will paint with Betadine and leave open to air, check daily. Lay the patient on a low air loss mattress, having turned every 2 hours. We will attempt to maximize his protein supplementation via his PEG tube for nutritional healing. The patient at this point in time is not a candidate for occupational or physical therapy; however, if the patient gets medically stable, this will be an [facility] [address] [facility] [address] CONSULTATION Name: KADEN NEGRON Room #: 352-P ADM IN .R.#: [id number] Admission: 12/19/18 Attend Phys: Nellie Lobo Discharge: Date of : 69 Report #: [id number] option. We will continue all his other current medications and continue to follow the patient. I appreciate the ability to consult. <ELECTRONICALLY SIGNED> By: Jersey Mitchell MD 12/23/18 0845 1230 1727 Jersey Mitchell MD /nt
[2018-12-23 11:54] VITALS: BP 125/70
[2018-12-23] MEDS ORDERED: OXYCODONE HCL10 MG PO (12:47)
[2018-12-23] MEDS ORDERED: BACLOFEN 10MG T10 MG PER TUBE (12:47)
[2018-12-23] MEDS ORDERED: FENTANYL PATCH75 MCG TRANSDERM (12:47)
[2018-12-23] MEDS ORDERED: ATIVAN1 MG PER TUBE (12:48)
[2018-12-23] MEDS ORDERED: LEVAQUIN 750 M750 MG PO (12:49)
[2018-12-23] MEDS ORDERED: VANCO1GM IV (12:50)
--- NOTE | 2018-12-23 13:26 | NUR ---
PATIENT TO DC TODAY TO [facility], PATIENT'S DC PAPERS FAXED TO FACILITY AND [facility] FOR CC, AMBULANCE SET UP FOR 330PM TODAY JEYSON, PIPE [facility]. UNIT AND FACILITY NOTIFIED OF PICKUP TIME.
--- NOTE | 2018-12-23 14:45 | NUR ---
ON-GOING ASSESSMENT: CM REVIEWED CHART AND SPOKE WITH ATTENDING. PT HAS ORDERS TO DISCHARGE BACK TO [facility] TODAY. CM SPOKE WITH LIASON AT [facility] WHO STATES THEY CAN ACCEPT PATIENT BACK TODAY AND DO NOT NEED AUTH. CHART COPY WAS ORDERED. WET PROCESS OPERATOR FAXING ORDERS AND FACILITATING TRANSPORTATION. CASE CLOSED.
--- NOTE | 2018-12-23 15:13 | NUR ---
PT TRANSFERRING TO [facility]..REPORT CALLED TO NATALY..TRANSPORT SCHEDULED AROUND 1530..
--- NOTE | 2018-12-23 17:04 | NUR ---
WOUND FOLLOW UP: PT. WAS SEEN TODAY BY DR. NEELY AND MYSELF. PT. WOUNDS ARE STABLE AT THIS TIME AND HE IS IN GOOD SPIRITS. RECOMMENDATIONS: CONTINUE WITH CURRENT PLAN OF CARE. PT. AND STAFF WERE INSTRUCTED ON PLAN OF CARE.
== END 2018-12-23 16:24 | DRG 193 ==
LOC: ER 17:55 → EROBS 21:04 → 3W 21:04
PROVIDERS: Emergency Medicine; Internal Medicine Geriatric Medicine; Student in an Organized Health Care Education/Training Program; ADMIT Internal Medicine
DX: J18.9 Pneumonia, unspecified organism (principal); L89.113 Pressure ulcer of right upper back, stage 3; L89.893 Pressure ulcer of other site, stage 3; L89.324 Pressure ulcer of left buttock, stage 4; L89.314 Pressure ulcer of right buttock, stage 4; L89.154 Pressure ulcer of sacral region, stage 4; G82.50 Quadriplegia, unspecified; E43 Unspecified severe protein-calorie malnutrition; J96.21 Acute and chronic respiratory failure with hypoxia; Z99.11 Dependence on respirator [ventilator] status; Z66 Do not resuscitate; K21.9 Gastro-esophageal reflux disease without esophagitis; I48.0 Paroxysmal atrial fibrillation; L89.610 Pressure ulcer of right heel, unstageable; L89.520 Pressure ulcer of left ankle, unstageable; L89.510 Pressure ulcer of right ankle, unstageable; Y95 Nosocomial condition; E87.8 Other disorders of electrolyte and fluid balance, not elsewhere classified; D50.9 Iron deficiency anemia, unspecified; N30.90 Cystitis, unspecified without hematuria; T17.990A Other foreign object in respiratory tract, part unspecified in causing asphyxiation, initial encounter; X58.XXXA Exposure to other specified factors, initial encounter; Y93.89 Activity, other specified; Y92.89 Other specified places as the place of occurrence of the external cause; Y99.8 Other external cause status; I25.2 Old myocardial infarction; Z93.0 Tracheostomy status; Z93.3 Colostomy status; Z79.899 Other long term (current) drug therapy; Z88.8 Allergy status to other drugs, medicaments and biological substances
CPT/HCPCS: 10879